=== PATIENT | female | born 1995 | race Caucasian/White ===

== ENCOUNTER 2019-04-25 15:25 | Emergency (ER) | payer SELFPAY ==
--- NOTE | 2019-04-25 16:33 | ED Physician Documentation ---
PD HPI LOWER EXT INJURY - Stated complaint Stated Complaint: RT TOE INJURY - Chief complaint Chief Complaint: Ext Problem - History obtained from History obtained from: Patient - History of Present Illness PD HPI LOW EXT INJURY LOCATION: Right, Toe Type of injury: Blunt / blow Where injury occurred: Home Timing - onset: How many days ago (2) Timing - duration: Days (2) Timing - details: Abrupt onset Improved by: Ice, Immobilization Recently seen: Not recently seen - Additional information Additional information: This is a 23-year-old who presents with her complaints that she rammed her foot into a box [place] 2 days ago and she thinks she broke her fourth toe on the right foot it kind of bent back and to the side. She is been taking ibuprofen and taping the 3 lateral toes together. She has been elevating and icing it. She is managed to get her foot into a shoe. She is not currently employed. Review of Systems Musculoskeletal: reports: Extremity pain Neurologic: denies: Numbness PD PAST MEDICAL HISTORY - Present Medications Home Medications: Ambulatory Orders Medication Instructions Recorded Confirmed Hydrocodone/Acetaminophen 1 - 2 each PO Q6H PRN #14 tablet 04/25/19 [Hydrocodon-Acetaminophen 5-325] PD ED PE NORMAL - Vitals Vital signs reviewed: Yes - General General: Alert and oriented X 3, No acute distress, Well developed/nourished - HEENT HEENT: Atraumatic - Extremities Extremities: Other (There is bruising to the right fourth toe. There is limited movement of the toe. Capillary refills less than 2 seconds.). No: No deformity - Neuro Neuro: Alert and oriented X 3, No motor deficit, No sensory deficit, Normal speech - Psych Psych: Normal mood, Normal affect Results - Vitals Vitals: Vital Signs - 24 hr 04/25/19 15:44 Temperature 36.7 C Heart Rate 90 Respiratory 16 Rate Blood Pressure 147/93 H O2 Saturation 100 Oxygen O2 Source Room air - Rads (name of study) r foot Radiology: EMP read contemporaneously (fracture R 4th toe prox phalanx) PD MEDICAL DECISION MAKING - ED course Complexity details: reviewed results, d/w patient, d/w family ED course: The right fourth toe is fractured the proximal phalanx. It does not appear to go into the joint. Results were discussed with the patient. She should continue aure taping she is gotten good relief with that but working to place her in a postop shoe. Continue the ibuprofen and she will be given a prescription for hydrocodone to help with the pain. Departure - Departure Disposition: 01 Home, Self Care Clinical Impression: Toe fracture, right Qualifiers: Encounter type: initial encounter Toe: lesser toe Fracture type: closed Phalanx: proximal Fracture alignment: nondisplaced Qualified Code(s): S92.514A - Nondisplaced fracture of proximal phalanx of right lesser toe(s), initial encounter for closed fracture Condition: Good Instructions: ED Fx Toe Closed Follow-Up: [facility] [Provider Group] Prescriptions: Hydrocodone/Acetaminophen [Hydrocodon-Acetaminophen 5-325] 1 - 2 each PO Q6H PRN #14 tablet PRN Reason: pain Comments: Continue to tape the 3 toes together for comfort. Wear the postop shoe for comfort. Ice and elevate as you have been doing. Continue to take ibuprofen and you have a prescription for hydrocodone if needed that you can take for pain but do not drive or operate machinery or take additional Tylenol with that.
--- NOTE | 2019-04-25 16:46 | XRAY Report ---
Reason: right foot injury Procedure Date: 04/25/2019 Accession Number: [id number] / [id number] Procedure: XR - Foot 3 View RT CPT Code: Final Report FULL RESULT: EXAM: RIGHT FOOT RADIOGRAPHY EXAM DATE: 04/25/2019 04:31 PM. CLINICAL HISTORY: Right foot injury on Thursday. Persistent pain and difficulty walking. COMPARISON: None. TECHNIQUE: 3 views. FINDINGS: Bones: Mildly displaced oblique mid to distal shaft fracture of the fourth proximal phalanx. Otherwise negative for traumatic or destructive bone abnormality. Joints: Normal. No subluxations. Soft Tissues: Associated soft tissue swelling. IMPRESSION: Mildly displaced oblique mid to distal shaft fracture of the fourth proximal phalanx. RADIA
[2019-04-25 17:20] VITALS: BP 141/90
== END 2019-04-25 17:21 | disposition home or self-care (01) ==
LOC: ED 15:25
DX: S92.514A Nondisplaced fracture of proximal phalanx of right lesser toe(s), initial encounter for closed fracture (principal); W22.03XA Walked into furniture, initial encounter; Y92.009 Unspecified place in unspecified non-institutional (private) residence as the place of occurrence of the external cause
CPT/HCPCS: 99283; 99284

== ENCOUNTER 2019-06-03 13:14 | Emergency (ER) | payer SELFPAY ==
--- NOTE | 2019-06-03 16:41 | ED Physician Documentation ---
PD HPI FEMALE - Stated complaint Stated Complaint: ABD PX - Chief complaint Chief Complaint: Abd Pain - History obtained from History obtained from: Patient - History of Present Illness Timing - onset: How many weeks ago (2) Timing - duration: Weeks (2) Timing - details: Gradual onset, Still present, Waxing and waning Associated symptoms: Pelvic pain (both sides, more to the right), Vaginal discharge (mild). No: Fever, Back pain, Vaginal pain, Genital sore/lesion, Dysuria Contributing factors: IUD (has been in for over 6 months). No: , Exposed to STD Similar symptoms before: Has not had sx before Recently seen: Not recently seen Review of Systems Constitutional: denies: Fever, Chills, Myalgias GI: denies: Nausea, Vomiting, Diarrhea : reports: Discharge (mild clear), LMP (just starting). 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: Breast reduction - Present Medications Home Medications: Ambulatory Orders Medication Instructions Recorded Confirmed Hydrocodone/Acetaminophen 1 - 2 each PO Q6H PRN #14 tablet 04/25/19 [Hydrocodon-Acetaminophen 5-325] Hydrocodone/Acetaminophen [Callao 1 each PO Q6H PRN #20 tablet 06/03/19 5-325 Tablet] Naproxen 500 mg PO BID #20 tablet 06/03/19 Ondansetron Odt [Zofran] 4 mg TL Q6H PRN #10 tablet 06/03/19 - Allergies Allergies/Adverse Reactions: Allergies Allergy/AdvReac Type Severity Reaction Status Date / Time nitrofurantoin AdvReac Nausea Verified 06/03/19 19:10 [From Macrobid] - Social History Does the pt smoke?: No Smoking Status: Never smoker Does the pt drink ETOH?: Yes Does the pt have substance abuse?: No - Immunizations Immunizations are current?: Yes - POLST Patient has POLST: No PD ED PE NORMAL - Vitals Vital signs reviewed: Yes - General General: Alert and oriented X 3, No acute distress, Well developed/nourished - Neck Neck: Supple, no meningeal sign, No adenopathy - Cardiac Cardiac: RRR, No murmur - Respiratory Respiratory: Clear bilaterally - Abdomen Abdomen: Normal bowel sounds, Soft, Non distended, No organomegaly, Other (Tender in the lower abdomen both right and left with slightly more so to the right. No percussion or rebound tenderness. There is no CVA tenderness.) Results - Vitals Vitals: Vital Signs - 24 hr 06/03/19 18:47 Heart Rate 60 Respiratory 16 Rate Blood Pressure 151/98 H O2 Saturation 97 Oxygen O2 Source Room air - Labs Labs: Laboratory Tests 06/03/19 06/03/19 06/03/19 13:45 13:45 17:13 WBC 11.1 H RBC 5.36 Hgb 14.8 Hct 44.5 MCV 83.0 MCH 27.6 MCHC 33.3 RDW 13.4 Plt Count 362 MPV 9.8 Neut # (Auto) 7.6 H Lymph # (Auto) 2.6 [place] # (Auto) 0.6 Eos # (Auto) 0.4 Baso # (Auto) 0.1 Absolute Nucleated RBC 0.00 Nucleated RBC % 0.0 Sodium Potassium Chloride Carbon Dioxide Anion Gap BUN Creatinine Estimated GFR (MDRD) Glucose Calcium Total Bilirubin AST ALT Alkaline Phosphatase Total Protein Albumin Globulin Albumin/Globulin Ratio Lipase Urine Color YELLOW Urine Clarity CLOUDY Urine pH 5.5 Ur Specific [place] >=1.030 H >=1.030 H Urine Protein NEGATIVE Urine Glucose (UA) NEGATIVE Urine Ketones NEGATIVE Urine Occult Blood MODERATE H Urine Nitrite NEGATIVE Urine Bilirubin NEGATIVE Urine Urobilinogen 0.2 (NORMAL) Ur Leukocyte Esterase NEGATIVE Urine RBC 6-10 H Urine WBC 0-3 Ur Squamous Epith Cells MOD Squamous H Urine Bacteria Few Ur Microscopic Review INDICATED Urine Culture Comments NOT INDICATED Urine HCG, Qual NEGATIVE C. glabrata (PCR) C. krusei (PCR) Jonelle species DNA Chlam trachomat DNA PCR N.gonorrhoeae DNA (PCR) T. vaginalis (PCR) Bact Vaginosis (PCR) 06/03/19 06/03/19 06/03/19 17:13 19:02 19:02 WBC RBC Hgb Hct MCV MCH MCHC RDW Plt Count MPV Neut # (Auto) Lymph # (Auto) [place] # (Auto) Eos # (Auto) Baso # (Auto) Absolute Nucleated RBC Nucleated RBC % Sodium 137 Potassium 3.8 Chloride 105 Carbon Dioxide 23 Anion Gap 9.0 BUN 15 Creatinine 0.6 Estimated GFR (MDRD) 125 Glucose 97 Calcium 9.1 Total Bilirubin 0.6 AST 21 ALT 30 Alkaline Phosphatase 93 Total Protein 7.3 Albumin 4.4 Globulin 2.9 Albumin/Globulin Ratio 1.5 Lipase 28 Urine Color Urine Clarity Urine pH Ur Specific [place] Urine Protein Urine Glucose (UA) Urine Ketones Urine Occult Blood Urine Nitrite Urine Bilirubin Urine Urobilinogen Ur Leukocyte Esterase Urine RBC Urine WBC Ur Squamous Epith Cells Urine Bacteria Ur Microscopic Review Urine Culture Comments Urine HCG, Qual C. glabrata (PCR) NEGATIVE C. krusei (PCR) NEGATIVE Jonelle species DNA NEGATIVE Chlam trachomat DNA PCR NEGATIVE N.gonorrhoeae DNA (PCR) NEGATIVE T. vaginalis (PCR) NEGATIVE NEGATIVE Bact Vaginosis (PCR) NEGATIVE - Rads (name of study) pelvic U/S Radiology: Prelim report reviewed (IUD in place; otherwise unremarkable U/S. normal flow to ovaries. ), See rad report PD MEDICAL DECISION MAKING - ED course Complexity details: reviewed results, considered differential (Given the duration of the pain and no fever vomiting and non-peritoneal abdominal exam, I do not feel that this is likely appendicitis. It is too low for gallbladder type pain. No history of diverticular problems. I would presume its pelvic pain and we can get an ultrasound as well as vaginal swabs and urine test.), d/w patient Departure - Departure Disposition: 01 Home, Self Care Clinical Impression: Pelvic pain Condition: Stable Record reviewed to determine appropriate education?: Yes Instructions: ED Pelvic Pain [facility] Follow-Up: [facility] [Provider Group] Paradise Hurst MD [Provider Admit Priv/Credential] - Prescriptions: Hydrocodone/Acetaminophen [Callao 5-325 Tablet] 1 each PO Q6H PRN #20 tablet PRN Reason: Pain Naproxen 500 mg PO BID #20 tablet Ondansetron Odt [Zofran] 4 mg TL Q6H PRN #10 tablet PRN Reason: Nausea / Vomiting Comments: Your urine test and blood count and pelvic ultrasound are normal without showing a reason for the pains. Consider some inflammation in the pelvic area. It does not sound like the pattern to suggest appendix or gallbladder. Stay well-hydrated. Continue daily stool softener while on the other medicines. Use of naproxen anti-inflammatory twice daily for 7 to 10 days. Add hydrocodone as needed for pain. Use ondansetron if needed for nausea. The vaginal swab test results will be available tomorrow and will call you if there is any signs of vaginal infection to account for the pains. Follow-up with gynecology office regarding further evaluation if not better over the next several days to week. Discharge Date/Time: 06/03/19 19:10
[2019-06-03] MEDS ORDERED: KETOROLAC 60 MG/2 ML VIAL IM STA (17:05)
[2019-06-03] MEDS ORDERED: ONDANSETRON ODT 4 MG TABLET TL STA (17:06)
[2019-06-03] MEDS ORDERED: ACETAMINOPHEN 325 MG TABLET PO STA (17:06)
[2019-06-03 17:21] LABS: BASOPHILS # (AUTO) 0.1 10^3/uL (0.0-0.1); BASOPHILS % (AUTO) 0.6 %; EOSINOPHILS # (AUTO) 0.4 10^3/uL (0.0-0.7); EOSINOPHILS % (AUTO) 3.1 %; HGB - HEMOGLOBIN 14.8 g/dL (12.0-16.0); LYMPHOCYTES # (AUTO) 2.6 10^3/uL (1.5-3.5); LYMPHOCYTES % (AUTO) 22.9 %; MEAN CORPUSCULAR HEMOGLOBIN 27.6 pg (27.0-31.0); MEAN CORPUSCULAR HGB CONC 33.3 g/dL (32.0-36.0); MEAN PLATELET VOLUME 9.8 fL (7.9-10.8); MONOCYTES # (AUTO) 0.6 10^3/uL (0.0-1.0); MONOCYTES % (AUTO) 5.1 %; NEUTROPHILS # (AUTO) 7.6 10^3/uL (1.5-6.6); NEUTROPHILS % (AUTO) 67.9 %; PLT - PLATELET COUNT 362 10^3/uL (130-450); RED BLOOD COUNT 5.36 10^6/uL (4.20-5.40); RED CELL DISTRIBUTION WIDTH 13.4 % (12.0-15.0); WHITE BLOOD COUNT 11.1 x10^3/uL (4.8-10.8)
[2019-06-03 17:36] LABS: ALBUMIN 4.4 g/dL (3.2-5.5); ALBUMIN/GLOBULIN RATIO 1.5 (1.0-2.2); BILIRUBIN,TOTAL 0.6 mg/dL (0.2-1.0); CALCIUM 9.1 mg/dL (8.5-10.3); CREATININE 0.6 mg/dL (0.4-1.0); TOTAL PROTEIN 7.3 g/dL (6.7-8.2)
[2019-06-03 17:58] LABS: BILIRUBIN,URINE NEGATIVE (NEGATIVE); GLUCOSE, URINE (UA) NEGATIVE (NEGATIVE); KETONES,URINE (UA) NEGATIVE (NEGATIVE); LEUKOCYTE ESTERASE, URINE NEGATIVE (NEGATIVE); NITRITE,URINE NEGATIVE (NEGATIVE); OCCULT BLOOD,URINE MODERATE (NEGATIVE); PH,URINE 5.5 PH (5.0-7.5); PROTEIN,URINE NEGATIVE (NEGATIVE); UROBILINOGEN,URINE 0.2 (NORMAL) E.U./dL (NORMAL)
[2019-06-03 18:02] LABS: CLARITY,URINE CLOUDY (CLEAR)
[2019-06-03 18:03] LABS: HCG UR QUAL NEGATIVE
[2019-06-03 18:08] LABS: BACTERIA,URINE Few /HPF (None Seen); SQUAMOUS EPITHELIAL CELL,UR MOD Squamous (<= Few)
--- NOTE | 2019-06-03 18:42 | Ultrasound Report ---
Reason: pelvic pain Procedure Date: 06/03/2019 Accession Number: [id number] / [id number] Procedure: US - Pelvic w/Transvag+Doppler Ltd CPT Code: Final Report FULL RESULT: EXAM: PELVIC ULTRASOUND WITH DOPPLERS CLINICAL HISTORY: Pelvic pain. COMPARISON: None. TECHNIQUE: Realtime transabdominal imaging performed to identify the uterus and adnexa and as an overview of other pelvic structures, followed by transvaginal imaging for better assessment of the endometrium and adnexa, with static image documentation. Color flow imaging and Doppler spectral analysis was performed to evaluate blood flow to the ovaries given pelvic pain and clinical concern for ovarian torsion. FINDINGS: Uterus: 7.6 x 3.9 x 5.0 cm, volume 78.1 cc. Anteverted position. Normal overall size and echotexture. Masses: None. Endometrium: [address] Cervix: Unremarkable. Right Ovary: 3.4 x 2.1 x 3.5 cm, volume 13.1 cc. Normal echotexture. Arterial and venous blood flow are present. PSV 60 cm/sec. RI 0.5. Adnexa are unremarkable. Left Ovary: 3.3 x 1.7 x 3.9 cm, volume 10.2 cc. Normal echotexture. Arterial and venous blood flow are present. PSV 12.9 cm/sec. RI 0.5. Adnexa are unremarkable. Free Fluid: None. Other: None. IMPRESSION: 1. IUD in place, otherwise unremarkable pelvic ultrasound. 2. Arterial and venous blood flow are present to the ovaries bilaterally. RADIA
[2019-06-03 18:48] VITALS: BP 151/98
[2019-06-03 22:07] LABS: CANDIDA GROUP DNA NEGATIVE (NEGATIVE); CANDIDA KRUSEI DNA NEGATIVE (NEGATIVE); TRICHOMONAS VAGINALIS DNA NEGATIVE (NEGATIVE)
[2019-06-03 23:01] LABS: TRICHOMONAS VAGINALIS DNA NEGATIVE (NEGATIVE)
== END 2019-06-03 19:10 | disposition home or self-care (01) ==
LOC: ED 13:14
DX: R10.2 Pelvic and perineal pain (principal); N89.8 Other specified noninflammatory disorders of vagina; Z97.5 Presence of (intrauterine) contraceptive device
CPT/HCPCS: 36415; 76830; 76856; 80053; 81001; 81025; 83690; 85025; 87481; 87491; 87591; 87661; 87801; 93976; 96372; 99284; A9270; Q0162; 81003; 87086

== ENCOUNTER 2019-06-14 16:29 | Outpatient (CLI) | payer BC ==
--- NOTE | 2019-06-14 18:46 | XRAY Report ---
Reason: ABDOMINAL PAIN Procedure Date: 06/14/2019 Accession Number: [id number] / [id number] Procedure: XR - Abdomen 2 View X-Ray CPT Code: 99957 Addended Final Report FULL RESULT: EXAM: ABDOMEN RADIOGRAPHY EXAM DATE: 06/14/2019 04:42 PM. CLINICAL HISTORY: ABDOMINAL PAIN. COMPARISON: None. TECHNIQUE: 2 views. FINDINGS: Lung Bases: Unremarkable. Bowel Gas Pattern: Moderate amount of stool in the colon. No dilated small bowel or air-fluid level. Free Air: None. Other: IUD is noted in the central pelvis. IMPRESSION: 1. Nonobstructive bowel gas pattern. 2. Moderate amount of stool in the colon. RADIA The call report notification system was initiated by Dr. Dorothy Andrade at 06:45 PM on 06/14/2019. ADDENDUM: 06/14/19 18:50 The above call report findings were discussed with Dr. Denny by Dr. Dorothy Andrade at 06:50 PM on 06/14/2019.
== END 2019-06-14 16:30 | disposition home or self-care (01) ==
LOC: DI 16:29
PROVIDERS: ATTEND Nurse Practitioner
DX: R10.9 Unspecified abdominal pain (principal)
CPT/HCPCS: 74019

== ENCOUNTER 2020-09-27 06:12 | Emergency (ER) | payer BC, OTHER ==
--- NOTE | 2020-09-27 06:40 | ED Physician Documentation ---
PD HPI URI - Stated complaint Stated Complaint: C+; FEVER - History obtained from History obtained from: Patient - History of Present Illness Timing - onset: How many days ago (8-9) Timing duration: Days Timing details: Abrupt onset, Still present (was feeling somewhat improved for 4 days or so, and with increased cough and now fevers again the past day.) Associated symptoms: Fever, Chills, Nasal congestion, Productive cough, NVD (nausea without vomiting; is somewhat constipated, no diarrhea.). No: Sore throat, Swollen nodes Contributing factors: Unimmunized (had not had COVID vaccine), COPD / asthma. No: Sick contact Improves by: MDI/nebulizer, Other (did feel better while taking steroid as well) Similar symptoms before: Has not had sx before (has had asthma exac at times in the past, but now with COVID infection as well.) Recently seen: Clinic (Seen last Thursday (6 days ago) with positive COVID test at [facility], and talked with her PCP with Rx for Prednisone 50 mg daily for 5 days and Albuterol MDI. Did feel improved with those, now worse again.) Review of Systems Constitutional: reports: Fever, Chills Nose: reports: Congestion Throat: denies: Sore throat Cardiac: denies: Chest pain / pressure Respiratory: reports: Dyspnea, Cough, Wheezing GI: reports: Nausea. denies: Vomiting, Diarrhea : denies: Dysuria Skin: denies: Rash Neurologic: reports: Generalized weakness. 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: Breast reduction - Present Medications Home Medications: Ambulatory Orders Medication Instructions Recorded Confirmed Amox/Clav 875/125 [Augmentin] 1 each PO BID 6 Days #12 tablet 09/27/20 Benzonatate [Tessalon] 100 mg PO TID PRN #20 cap 09/27/20 Ondansetron Odt [Zofran] 4 mg TL Q6H PRN #10 tablet 09/27/20 predniSONE [Deltasone] 20 mg PO DAILY 5 Days #5 tablet 09/27/20 - Allergies Allergies/Adverse Reactions: Allergies Allergy/AdvReac Type Severity Reaction Status Date / Time nitrofurantoin AdvReac Nausea Verified 09/27/20 06:52 [From Macrobid] - Social History Does the pt smoke?: No Smoking Status: Never smoker Does the pt drink ETOH?: Yes Does the pt have substance abuse?: No - Immunizations Immunizations are current?: Yes - POLST Patient has POLST: No PD ED PE NORMAL - Vitals Vital signs reviewed: Yes (sats are good; mild tachycardia.) - General General: Alert and oriented X 3, No acute distress, Well developed/nourished - HEENT HEENT: Ears normal, Pharynx benign - Neck Neck: Supple, no meningeal sign, No adenopathy - Cardiac Cardiac: No murmur. No: RRR (regular but tachycardic) - Respiratory Respiratory: No: Clear bilaterally (some coarse sounds and diminished right upper. Otherwise mild exp wheezing. ) - Abdomen Abdomen: Soft, Non tender - Derm Derm: Normal color, Warm and dry - Extremities Extremities: Normal ROM s pain, No edema, No calf tenderness / cord - Neuro Neuro: Alert and oriented X 3, No motor deficit, Normal speech Results - Vitals Vitals: Vital Signs - 24 hr 09/27/20 09/27/20 09/27/20 06:39 07:46 10:50 Temperature 37.9 C Heart Rate 118 H 140 H 108 H Respiratory 15 20 13 Rate Blood Pressure 117/84 H 106/78 O2 Saturation 95 98 09/27/20 11:34 Temperature 37.8 C Heart Rate 98 Respiratory 14 Rate Blood Pressure 108/80 O2 Saturation 98 Oxygen O2 Source Room air - Labs Labs: Laboratory Tests 09/27/20 07:26 Sodium 139 Potassium 4.2 Chloride 106 Carbon Dioxide 24 Anion Gap 9.0 BUN 13 Creatinine 0.9 Estimated GFR (MDRD) 78 L Glucose 109 H Calcium 9.2 Total Bilirubin 0.6 AST 29 ALT 36 Alkaline Phosphatase 86 Total Protein 7.6 Albumin 4.4 Globulin 3.2 Albumin/Globulin Ratio 1.4 Lipase 27 - Rads (name of study) chest xray Radiology: Prelim report reviewed (focal infiltrates upper lung fleming, particu larly right. ), See rad report PD MEDICAL DECISION MAKING - ED course Complexity details: reviewed results, re-evaluated patient, considered differential (concern for COVID worse and/or secondary infections as well as exac asthma. ), d/w patient, d/w rewards consultant (talked with Pharmacist and patient does qualify for Regeneron IV. Patient agreeable. ) Departure - Departure Disposition: 01 Home, Self Care Clinical Impression: COVID-19 Pneumonia Qualifiers: Pneumonia type: due to unspecified organism Laterality: right Lung location: upper lobe of lung Qualified Code(s): J18.9 - Pneumonia, unspecified organism Condition: Stable Record reviewed to determine appropriate education?: Yes Instructions: ED Pneumonia Adult Prescriptions: Amox/Clav 875/125 [Augmentin] 1 each PO BID 6 Days #12 tablet predniSONE [Deltasone] 20 mg PO DAILY 5 Days #5 tablet Benzonatate [Tessalon] 100 mg PO TID PRN #20 cap PRN Reason: Cough Ondansetron Odt [Zofran] 4 mg TL Q6H PRN #10 tablet PRN Reason: Nausea / Vomiting Comments: Your chest x-ray has patchy infiltrate that suggest a secondary bacterial infection atop your Covid lung irritation. We will treat this with Augmentin antibiotic twice daily for 6 days. Use Tessalon if needed for cough. Finish your 2 days of the prednisone 50 mg and then decrease to 20 mg daily for 5 more days. Stay well-hydrated. Ondansetron if needed for nausea. Return if worsening symptoms despite the above. Use your albuterol inhaler 2 to 3 puffs 4 times a day regularly for the next several days to week and extra times as needed. Forms: Activity restrictions Discharge Date/Time: 09/27/20 11:30
[2020-09-27] MEDS ORDERED: SODIUM CHLORIDE 0.9% 1,000 ML IV STA (07:03)
[2020-09-27] MEDS ORDERED: ALBUTEROL 1 PUFF INH STA (07:03)
[2020-09-27] MEDS ORDERED: ACETAMINOPHEN 325 MG TABLET PO STA (07:05)
[2020-09-27] MEDS ORDERED: ONDANSETRON 4 MG/2 ML VIAL IVP STA (07:05)
[2020-09-27] MEDS ORDERED: DEXAMETHASONE 10 MG/ML VIAL IVP STA (07:05)
[2020-09-27 07:50] LABS: ALBUMIN 4.4 g/dL (3.2-5.5); ALBUMIN/GLOBULIN RATIO 1.4 (1.0-2.2); BILIRUBIN,TOTAL 0.6 mg/dL (0.2-1.0); CALCIUM 9.2 mg/dL (8.5-10.3); CREATININE 0.9 mg/dL (0.4-1.0); POTASSIUM 4.2 mmol/L (3.5-5.0); TOTAL PROTEIN 7.6 g/dL (6.7-8.2)
[2020-09-27] MEDS ORDERED: [UNRECOGNIZED DRUG - OTHER] IV ONE (08:00)
[2020-09-27] MEDS ORDERED: cefTRIAXone 1 GM VIAL IVP STA (08:05)
[2020-09-27] MEDS ORDERED: CHERRY SYRUP 10 ML UDC PO ONE (08:06)
--- NOTE | 2020-09-27 08:17 | XRAY Report ---
PROCEDURE: Chest 1 View X-Ray INDICATIONS: cough, dyspnea; COVID + TECHNIQUE: One view of the chest was acquired. COMPARISON: None of the chest. FINDINGS: Surgical changes and devices: None. Lungs and pleura: No pleural effusions or pneumothorax. Lungs are right upper lobe radiodensity at the upper outer border of the hemithorax.. Mediastinum: Mediastinal contours appear normal. Heart size is normal. Bones and chest wall: No suspicious bony lesions. Overlying soft tissues appear unremarkable. IMPRESSION: Apparent pneumonia lateral right upper lobe, without underlying pleural effusion. Reviewed by: Zachary Sosa MD on 09/27/2020 8:16 AM PDT Approved by: Zachary Sosa MD on 09/27/2020 8:16 AM PDT Station ID: [id number]
[2020-09-27 11:35] VITALS: BP 108/80
== END 2020-09-27 11:30 | disposition home or self-care (01) ==
LOC: ED 06:12
DX: U07.1 COVID-19 (principal); J12.82 Pneumonia due to coronavirus disease 2019; J45.909 Unspecified asthma, uncomplicated
CPT/HCPCS: 36415; 71045; 80053; 83690; 94640; 96374; 96375; 99284; 99285; A9270; J7040; M0243; Q0243

== ENCOUNTER 2021-08-24 20:04 | Outpatient (CLI) | payer OTHER ==
[2021-08-24 21:05] LABS: BASOPHILS # (AUTO) 0.1 10^3/uL (0.0-0.1); BASOPHILS % (AUTO) 0.4 %; EOSINOPHILS # (AUTO) 0.2 10^3/uL (0.0-0.7); EOSINOPHILS % (AUTO) 1.2 %; HCT - HEMATOCRIT 37.1 % (37.0-47.0); HGB - HEMOGLOBIN 12.2 g/dL (12.0-16.0); LYMPHOCYTES # (AUTO) 2.7 10^3/uL (1.5-3.5); LYMPHOCYTES % (AUTO) 13.8 %; MEAN CORPUSCULAR HEMOGLOBIN 27.3 pg (27.0-31.0); MEAN CORPUSCULAR HGB CONC 32.9 g/dL (32.0-36.0); MEAN PLATELET VOLUME 10.6 fL (7.9-10.8); MONOCYTES # (AUTO) 0.8 10^3/uL (0.0-1.0); MONOCYTES % (AUTO) 4.1 %; NEUTROPHILS # (AUTO) 15.7 10^3/uL (1.5-6.6); NEUTROPHILS % (AUTO) 79.9 %; PLT - PLATELET COUNT 362 10^3/uL (130-450); RED BLOOD COUNT 4.47 10^6/uL (4.20-5.40); RED CELL DISTRIBUTION WIDTH 12.9 % (12.0-15.0); WHITE BLOOD COUNT 19.6 x10^3/uL (4.8-10.8)
[2021-08-24 21:15] LABS: BILIRUBIN,URINE NEGATIVE (NEGATIVE); GLUCOSE, URINE (UA) NEGATIVE (NEGATIVE); KETONES,URINE (UA) 15 mg/dL (NEGATIVE); LEUKOCYTE ESTERASE, URINE SMALL (NEGATIVE); NITRITE,URINE NEGATIVE (NEGATIVE); OCCULT BLOOD,URINE NEGATIVE (NEGATIVE); PROTEIN,URINE NEGATIVE (NEGATIVE); UROBILINOGEN,URINE 0.2 (NORMAL) E.U./dL (NORMAL)
[2021-08-24 21:17] LABS: ALBUMIN/GLOBULIN RATIO 0.8 (1.0-2.2); BILIRUBIN,TOTAL 0.3 mg/dL (0.2-1.0); CALCIUM 9.4 mg/dL (8.5-10.3); CREATININE 0.6 mg/dL (0.4-1.0); POTASSIUM 3.9 mmol/L (3.5-5.0); TOTAL PROTEIN 6.8 g/dL (6.7-8.2)
[2021-08-24 21:29] LABS: CLARITY,URINE HAZY (CLEAR)
[2021-08-24 21:32] LABS: CREATININE,URINE 107.3 mg/dL; PROTEIN/CREATININE RATIO,URINE 0.1 (<=0.2)
[2021-08-24 21:34] LABS: BACTERIA,URINE Many /HPF (None Seen); RBC,URINE 0-5 /HPF (0-5); SQUAMOUS EPITHELIAL CELL,UR MANY Squamous (<= Few)
[2021-08-24] MEDS ORDERED: MORPHINE 10 MG/ML VIAL IVP ONE (21:37)
--- NOTE | 2021-08-24 21:57 | PROVIDER PROGRESS NOTE ---
- HPI Chief Complaint: Decreased movement Current : Vital Signs Temperature 37.2 C 08/24/21 20:17 Heart Rate 117 H 08/24/21 20:17 Respiratory Rate 18 08/24/21 20:17 Blood Pressure 128/80 08/24/21 20:17 O2 Saturation 97 08/24/21 20:17 Temperature 37.2 C 08/24/21 20:21 Heart Rate 117 H 08/24/21 20:17 Respiratory Rate 18 08/24/21 20:17 Blood Pressure 128/80 08/24/21 20:17 O2 Saturation 97 08/24/21 20:17 - Procedures OB Procedure Performed: NST Diagnosis/Indication for NST: Decreased movement - Plan Plan: Ghislaine is a 25yo @ 36.4wks gestation who presents to [facility] with c/o left ear and eye pain, severe headache, facial swelling and decreased movement. She is a patient of [facility] and routinely sees Caryl flynn. She had a routine exam yesterday and was noted to have mildly elevated blood pressure with repeat blood pressure WNL. She was instructed to take her BPs at home and reports they have all remained WNL. She denies RUQ pain. She reports a Hx of migraine headaches which are usually relieved by iburpofen which she cannot take in . She has taken 1000mg Ibuprofen approximately 2 hours ago and states it did not even touch her headache. She reports cold symptoms with onset 3 days ago that seemed to have resolved today but then this ear pain started. She felt like was likely related to residual cold symptoms and exacerbated by her headache but secondary to her elevated blood pressures and the signs and symptoms of preeclampsia she was instructed to watch out for, she decided it was best that she present for evaluation. She states she can now feel her baby moving regularly however when she was at home she felt like it had been more than 2 hours since she had felt her move consistently. She denies vaginal bleeding or leakage of fluid and she denies contractions. She is supported by her partner today. She reports she is fully vaccinated against COVID -19. She took an at-home Covid test today which was negative. NST performed 08/24/2021 NST read 08/24/2021 NST reactive. FHR baseline 140s, moderate variability, + accels, no decels No contractions appreciated via tocometry Physical Exam: Normocephalic, atraumatic. PERRLA. Heart RRR w/o M/G/R, lungs CTAB, abdomen gravid, soft, nontender. Bilateral LE's trace edema. Labs: WBCs elevated to 19.6 All other labs WNL. AST 22 ALT 22 creatinine 0.6 PLT 362 Urine protein/creatinine ratio 0.1 Hgb 12.2 Hct 37.1 Rapid Covid -pending. Assessment: 25yo @ 36.4wks gestation Decreased movement Acute otitis media Migraine headache Plan: Pt reassured following normal preeclampsia workup. Morphine 10mg IM x once administered now. Rx for Augmentin sent to preferred pharmacy. Reviewed warning s/sx and when to present. Pt released home with precautions. Pt verbalized understanding and agrees to above plan. She denies further questions or concerns at this time.
[2021-08-24 22:59] VITALS: BP 95/62
== END 2021-08-24 22:32 | disposition home or self-care (01) ==
LOC: WFO 20:04 → FBP 20:08 → WFO 22:32
PROVIDERS: ATTEND Nurse Practitioner Obstetrics & Gynecology
DX: O36.8130 Decreased fetal movements, third trimester, not applicable or unspecified (principal); O99.891 Other specified diseases and conditions complicating pregnancy; H66.90 Otitis media, unspecified, unspecified ear; O99.353 Diseases of the nervous system complicating pregnancy, third trimester; G43.909 Migraine, unspecified, not intractable, without status migrainosus; Z3A.36 36 weeks gestation of pregnancy; Z20.822 Contact with and (suspected) exposure to COVID-19
CPT/HCPCS: 36415; 59025; 80053; 81001; 81003; 82570; 84156; 85025; 87086; 96374; 99215

== ENCOUNTER 2022-03-27 18:53 | Emergency (ER) | payer MEDICAID, OTHER ==
[2022-03-27 19:11] VITALS: BP 136/82
[2022-03-27 20:25] LABS: CORONAVIRUS 229E-RESP PCR NOT DETECTED; CORONAVIRUS HKU1-RESP PCR NOT DETECTED; CORONAVIRUS NL63-RESP PCR NOT DETECTED; CORONAVIRUS OC43-RESP PCR NOT DETECTED; HUMAN METAPNEUMOVIRUS NOT DETECTED; RHINOVIRUS/ENTEROVIRUS NOT DETECTED; SARS-CoV-2 -RESP PCR PANEL NOT DETECTED
[2022-03-27 20:26] LABS: B. PARAPERTUSSIS- RESP PCR PAN NOT DETECTED; B. PERTUSSIS- RESP PCR PANEL NOT DETECTED; C. PNEUMONIAE- RESP PCR PANEL NOT DETECTED; INFLUENZA A H3- RESP PCR PANEL DETECTED; INFLUENZA B - RESP PCR PANEL NOT DETECTED; M. PNEUMONIAE- RESP PCR PANEL NOT DETECTED; PARAINFLUENZA VIRUS 1 NOT DETECTED; PARAINFLUENZA VIRUS 2 NOT DETECTED; PARAINFLUENZA VIRUS 3 NOT DETECTED; PARAINFLUENZA VIRUS 4 NOT DETECTED; RSV- RESP PCR PANEL NOT DETECTED
--- NOTE | 2022-03-27 21:32 | ED Physician Documentation ---
History of Present Illness - Stated complaint Stated Complaint: COUGH, FLU SYMPTOMS - Chief complaint Chief Complaint: Resp - History obtained from History obtained from: Patient - Additonal information Additional information: Patient comes to the emergency department for chief complaint of fever, body aches, fatigue, and cough over the last couple of days. Her daughter is sick with something similar. She has vomited once. No diarrhea. No other complaints at this time. Review of Systems Ten Systems: 10 systems reviewed and negative Constitutional: reports: Fever, Myalgias, Fatigue Eyes: reports: Reviewed and negative Ears: reports: Reviewed and negative Nose: reports: Rhinorrhea / runny nose, Congestion Throat: reports: Sore throat Cardiac: reports: Reviewed and negative Respiratory: reports: Cough GI: reports: Reviewed and negative : reports: Reviewed and negative Skin: reports: Reviewed and negative Musculoskeletal: reports: Reviewed and negative Neurologic: reports: Reviewed and negative Psychiatric: reports: Reviewed and negative Endocrine: reports: Reviewed and negative Immunocompromised: reports: Reviewed and negative PD PAST MEDICAL HISTORY - Past Medical History Past Medical History: Yes Cardiovascular: None Respiratory: Asthma Neuro: None Endocrine/Autoimmune: None GI: None ELIGIBILITY COUNSELOR: None : None HEENT: None Psych: None Musculoskeletal: None Derm: None - Past Surgical History Past Surgical History: Yes /ELIGIBILITY COUNSELOR: Breast reduction - Present Medications Home Medications: Ambulatory Orders Medication Instructions Recorded Confirmed Albuterol Sulf [Ventolin Hfa 1 - 2 puffs INH Q4HR PRN #1 each 03/27/22 Inhaler] Albuterol Sulfate [Proair 2 puffs IH Q4HR PRN 03/27/22 03/27/22 Respiclick] Ondansetron Odt [Zofran] 4 mg TL Q6H PRN #20 tablet 03/27/22 - Allergies Allergies/Adverse Reactions: Allergies Allergy/AdvReac Type Severity Reaction Status Date / Time nitrofurantoin AdvReac Nausea Verified 03/27/22 19:11 [From Macrobid] - Social History Does the pt smoke?: No Smoking Status: Never smoker Does the pt drink ETOH?: Yes Does the pt have substance abuse?: No - Immunizations Immunizations are current?: Yes - POLST Patient has POLST: No PD ED PE NORMAL - Vitals Vital signs reviewed: Yes - General General: Alert and oriented X 3, No acute distress, Well developed/nourished - HEENT HEENT: Atraumatic, PERRL, EOMI, Moist mucous membranes - Neck Neck: Supple, no meningeal sign - Cardiac Cardiac: RRR, No murmur, Strong equal pulses - Respiratory Respiratory: No respiratory distress, Clear bilaterally - Abdomen Abdomen: Soft, Non tender, Non distended - Derm Derm: Normal color, Warm and dry, No rash - Extremities Extremities: No deformity, No edema - Neuro Neuro: Alert and oriented X 3, fare collector 2-12 intact, Normal speech, Other (Grossly intact) - Psych Psych: Normal mood, Normal affect Results - Vitals Vitals: Oxygen O2 Source Room air - Labs Labs: Laboratory Tests 03/27/22 19:12 Nasal Adenovirus (PCR) NOT DETECTED Nasal B. parapertussis DNA (PCR) NOT DETECTED Nasal Coronavir 229E PCR NOT DETECTED Nasal Coronavir HKU1 PCR NOT DETECTED Nasal Coronavir NL63 PCR NOT DETECTED Nasal Coronavir OC43 PCR NOT DETECTED Nasal Enterovir/Rhinovir PCR NOT DETECTED Nasal Influenza A H3 PCR DETECTED A Nasal Influenza B PCR NOT DETECTED Nasal Parainfluen 1 PCR NOT DETECTED Nasal Parainfluen 2 PCR NOT DETECTED Nasal Parainfluen 3 PCR NOT DETECTED Nasal Parainfluen 4 PCR NOT DETECTED Nasal RSV (PCR) NOT DETECTED Nasal B.pertussis DNA PCR NOT DETECTED Nasal C.pneumoniae (PCR) NOT DETECTED Eder Human Metapneumo PCR NOT DETECTED Nasal M.pneumoniae (PCR) NOT DETECTED Nasal SARS-CoV-2 (PCR) NOT DETECTED PD Medical Decision Making - ED course Complexity details: reviewed results, re-evaluated patient, considered differential, d/w patient ED course: The patient was worked up with a respiratory PCR panel and to be positive for influenza A. We have discussed symptomatic management at home and the usual indications for return. Departure - Departure Disposition: 01 Home, Self Care Clinical Impression: Influenza A Asthma Qualifiers: Asthma severity: mild Asthma persistence: intermittent Asthma complication type: uncomplicated Qualified Code(s): J45.20 - Mild intermittent asthma, uncomplicated Condition: Stable Instructions: ED Reactive Airway Disease, ED Flu Prescriptions: Albuterol Sulf [Ventolin Hfa Inhaler] 1 - 2 puffs INH Q4HR PRN #1 each PRN Reason: Shortness Of Air/Wheezing Ondansetron Odt [Zofran] 4 mg TL Q6H PRN #20 tablet PRN Reason: Nausea / Vomiting Comments: Your viral panel was positive for influenza A. This is a viral illness which is unpleasant, but generally resolves on its own without complications. Symptoms can last anywhere from several days to a couple of weeks. Please take the nausea medication as needed. The prescription for this has been electronically transmitted to [facility] pharmacy in [place], your pharmacy of choice on record. You may also take Tylenol 650 mg every 4 hours and ibuprofen 600 mg every 6 hours, as needed for fever or other discomforts. You may follow-up with your primary care physician as needed. Discharge Date/Time: 03/27/22 21:52
== END 2022-03-27 21:52 | disposition home or self-care (01) ==
LOC: ED 18:53
DX: J10.1 Influenza due to other identified influenza virus with other respiratory manifestations (principal); J45.20 Mild intermittent asthma, uncomplicated; Z20.822 Contact with and (suspected) exposure to COVID-19
CPT/HCPCS: 87633; 99282; 99283